=== PATIENT | female | born 1970 | race Caucasian/White ===

== ENCOUNTER 2020-04-25 18:03 | Emergency (ER) | payer SELFPAY ==
[2020-04-25 18:43] VITALS: BP 144/72
--- NOTE | 2020-04-25 19:06 | NUR ---
PER ADMITTING STAFF, PATIENT LEFT WITHOUT BEING SEEN BY DR. VANEGAS AT 1806.
== END 2020-04-25 18:06 | disposition left against medical advice (07) ==
LOC: MED 18:03
DX: R52 Pain, unspecified (principal); Z53.21 Procedure and treatment not carried out due to patient leaving prior to being seen by health care provider